=== PATIENT | female | born 1935 | race Caucasian/White ===

== ENCOUNTER 2017-09-12 09:59 | Day surgery (SDC) | payer MEDICARE, OTHER ==
[2017-09-11 12:01] LABS: BASOPHILS % (AUTO) 0.7 % (0-1); EOSINOPHILS # (AUTO) 0.3 X10'3 (0-0.9); HEMATOCRIT 31.7 % (35.0-45.0); HEMOGLOBIN 10.6 g/dl (12.0-16.0); LYMPHOCYTES # (AUTO) 1.7 X10'3 (1.1-4.8); LYMPHOCYTES % (AUTO) 25.7 % (21-51); MEAN CORPUSCULAR HGB CONC 33.5 % (33.0-36.5); MEAN CORPUSCULAR VOLUME 101.4 FL (78-98); MEAN PLATELET VOLUME 8.3 FL (7.4-10.4); MONOCYTES # (AUTO) 0.6 X10'3 (0-0.9); MONOCYTES % (AUTO) 9.2 % (2-12); NEUTROPHILS # (AUTO) 3.9 X10'3 (1.8-7.7); NEUTROPHILS % (AUTO) 60.4 % (42-75); PLATELET COUNT 173 X10'3 (140-440); RED BLOOD COUNT 3.12 X10'6 (4.20-5.60); RED CELL DISTRIBUTION WIDTH 14.1 % (11.5-14.5); WHITE BLOOD COUNT 6.5 X10'3 (4.5-11.0)
[2017-09-11 12:12] LABS: ALBUMIN 3.3 G/DL (3.4-5.0); ANION GAP 11 (8-16); BLOOD UREA NITROGEN 27 MG/DL (7-18); BUN/CREATININE RATIO 15.8 (6.6-38.0); CALCIUM 8.8 MG/DL (8.5-10.1); CHLORIDE 103 MMOL/L (99-107); CREATININE 1.71 MG/DL (0.40-0.90); GLUCOSE 107 MG/DL (70-104); POTASSIUM 4.2 MMOL/L (3.5-5.1); PROTHROMBIN TIME 10.1 SECONDS (9.0-12.0); SODIUM 138 MMOL/L (135-145); TOTAL CARBON DIOXIDE 24.1 MMOL/L (24-32); eGFR 29 ML/MIN
[~2017-09-12] VITALS: Ht 149.9 cm; Wt 91.8 kg
[2017-09-12] VITALS (16 sets, daily range): BP systolic 103–164; BP diastolic 35–70
[2017-09-12] MEDS ORDERED: LORazepam 0.5 MG tablet PO ONE ×2 (10:30→11:00)
[2017-09-12] MEDS ORDERED: diphenhydrAMINE 25mg capsule PO ONE ×2 (10:30→11:00)
[2017-09-12] MEDS ORDERED: normal saline 1000ml 1,000 ML IV SCH ×2 (10:30→11:00)
[2017-09-12] MEDS ORDERED: MIDAZolam 5mg/ml 2ml vial IV ONE (11:00)
[2017-09-12] MEDS ORDERED: morphine 10mg/ml inj. IV ONE (11:00)
[2017-09-12] MEDS ORDERED: amiodarone in dextrose, iso-osm 150mg/100ml bag IV ONE (11:00)
[2017-09-12] MEDS ORDERED: atropine 0.1mg/ml 10ml syringe IV ONE (11:00)
[2017-09-12] MEDS ORDERED: enoxaparin 100mg/ml syringe SUBCUT ONE (11:20)
[2017-09-12] MEDS ORDERED: LEVO50TA8 PO (11:37)
[2017-09-12] MEDS ORDERED: OXYB5TAB11 PO (11:51)
[2017-09-12] MEDS ORDERED: TAMO20TA4 PO (11:51)
[2017-09-12] MEDS ORDERED: SODI650T29 PO (11:51)
[2017-09-12] MEDS ORDERED: LORA1TAB PO (11:51)
[2017-09-12] MEDS ORDERED: CYAN-19 PO (11:51)
[2017-09-12] MEDS ORDERED: AMLO-94 PO (11:51)
[2017-09-12] MEDS ORDERED: HYDR-3972 PO (11:51)
[2017-09-12] MEDS ORDERED: FOLI0.4T2 PO (11:51)
[2017-09-12] MEDS ORDERED: FAMO20TA8 PO (11:55)
== END 2017-09-12 16:30 | disposition home or self-care (01) ==
LOC: SSTAY O 09:59
PROVIDERS: ATTEND Internal Medicine Cardiovascular Disease
DX: I48.1 Persistent atrial fibrillation (principal); E11.9 Type 2 diabetes mellitus without complications; I11.0 Hypertensive heart disease with heart failure; I50.9 Heart failure, unspecified; I07.1 Rheumatic tricuspid insufficiency; E78.5 Hyperlipidemia, unspecified; E03.9 Hypothyroidism, unspecified; J45.998 Other asthma; Z90.49 Acquired absence of other specified parts of digestive tract; Z96.643 Presence of artificial hip joint, bilateral; Z85.118 Personal history of other malignant neoplasm of bronchus and lung; Z85.42 Personal history of malignant neoplasm of other parts of uterus; Z79.891 Long term (current) use of opiate analgesic; Z87.891 Personal history of nicotine dependence; Z90.2 Acquired absence of lung [part of]; Z90.710 Acquired absence of both cervix and uterus; Z79.899 Other long term (current) drug therapy; Z98.890 Other specified postprocedural states
CPT/HCPCS: 36415; 80048; 85025; 85610; 93005; 93312; J0461; J1650; J2250; J2270; J7030; Q0163; A4620; J0282

== ENCOUNTER 2017-11-26 08:02 | Day surgery (SDC) | payer MEDICARE, OTHER ==
[2017-11-26] VITALS (10 sets, daily range): BP systolic 106–148; BP diastolic 52–68
[~2017-11-26] VITALS: Ht 149.9 cm; Wt 94.4 kg
[~2017-11-26 08:02] MED LIST: AMLO-94 PO; CYAN-19 PO; FAMO20TA8 PO; FOLI0.4T2 PO; HYDR-3972 PO; LEVO50TA8 PO; LORA1TAB PO; OXYB5TAB11 PO; SODI650T29 PO; TAMO20TA4 PO
[2017-11-26] MEDS ORDERED: ceFAZolin 1GM/D5W- ADD-VANTAGE 50 ML IV ONE ×2 (08:35→08:45)
[2017-11-26] MEDS ORDERED: normal saline 1000ml 1,000 ML IV SCH (08:35)
[2017-11-26] MEDS ORDERED: midazolam 2 mg/2 ml injection ONE ×3 (08:46→11:17)
[2017-11-26] MEDS ORDERED: ceFAZolin 1000mg inj ONE (08:46)
[2017-11-26] MEDS ORDERED: LIDOcaine 1% w/EPI 1:100,000 30ml vial (MDV) ONE ×2 (08:46→10:41)
[2017-11-26] MEDS ORDERED: fentaNYL/PF 50MCG/1 ML 2ML syringe ONE ×2 (08:46→10:30)
[2017-11-26] MEDS ORDERED: OMEP20CA10 PO (09:02)
[2017-11-26] MEDS ORDERED: LEVO75TA PO (09:02)
[2017-11-26] MEDS ORDERED: APIX2.5T PO (09:02)
[2017-11-26] MEDS ORDERED: LORA2TAB96 PO (09:02)
[2017-11-26] MEDS ORDERED: ALBU8HFA PO (09:02)
[2017-11-26] MEDS ORDERED: AMIO200T57 PO (09:02)
[2017-11-26] MEDS ORDERED: ADV50250 IH (09:06)
[2017-11-26] MEDS ORDERED: d3 (09:06)
[2017-11-26] MEDS ORDERED: POLY17PO10 PO (09:06)
[2017-11-26] MEDS ORDERED: B12 PO (09:06)
[2017-11-26 09:59] LABS: BASOPHILS % (AUTO) 0.2 % (0-1); EOSINOPHILS # (AUTO) 0.2 X10'3 (0-0.9); EOSINOPHILS % (AUTO) 2.2 % (0-6); HEMATOCRIT 29.5 % (35.0-45.0); HEMOGLOBIN 9.7 g/dl (12.0-16.0); LYMPHOCYTES # (AUTO) 1.5 X10'3 (1.1-4.8); LYMPHOCYTES % (AUTO) 17.9 % (21-51); MEAN CORPUSCULAR HEMOGLOBIN 32.7 PG (27.0-31.0); MEAN CORPUSCULAR VOLUME 99.1 FL (78-98); MONOCYTES # (AUTO) 0.8 X10'3 (0-0.9); MONOCYTES % (AUTO) 9.2 % (2-12); NEUTROPHILS # (AUTO) 6.1 X10'3 (1.8-7.7); NEUTROPHILS % (AUTO) 70.5 % (42-75); PLATELET COUNT 176 X10'3 (140-440); RED BLOOD COUNT 2.98 X10'6 (4.20-5.60); WHITE BLOOD COUNT 8.6 X10'3 (4.5-11.0)
[2017-11-26] MEDS ORDERED: iohexol 350 MG/ML 50ML vial IV ONE (10:07)
[2017-11-26 10:08] LABS: ALBUMIN 3.1 G/DL (3.4-5.0); ANION GAP 7 (8-16); BLOOD UREA NITROGEN 25 MG/DL (7-18); BUN/CREATININE RATIO 12.1 (6.6-38.0); CALCIUM 8.8 MG/DL (8.5-10.1); CHLORIDE 106 MMOL/L (99-107); CREATININE 2.06 MG/DL (0.40-0.90); GLUCOSE 106 MG/DL (70-104); POTASSIUM 4.4 MMOL/L (3.5-5.1); SODIUM 138 MMOL/L (135-145); eGFR 23 ML/MIN
[2017-11-26 10:10] LABS: INR 0.9 INR; PARTIAL THROMBOPLASTIN TIME 25 SECONDS (22-32); PROTHROMBIN TIME 9.8 SECONDS (9.0-12.0)
[2017-11-26] MEDS ORDERED: HYDROmorphone 1 mg/ml syringe ONE (10:36)
[2017-11-26] MEDS ORDERED: normal saline 500ml IV soln 400 ML IV ONE (12:15)
[2017-11-26] MEDS ORDERED: HYDROcodone/acetaminophen 5mg/325mg tablet PO PRN (12:15)
[2017-11-26] MEDS: HYDROcodone/acetaminophen 10/325mg tab PO PRN ×2 (12:22→16:38)
[2017-11-26] MEDS ORDERED: ceFAZolin 1GM/D5W- ADD-VANTAGE 50 ML IV SCH (16:00)
== END 2017-11-26 18:00 | disposition home or self-care (01) ==
LOC: SSTAY O 08:02
PROVIDERS: ATTEND Internal Medicine Cardiovascular Disease
DX: I49.5 Sick sinus syndrome (principal); E11.9 Type 2 diabetes mellitus without complications; E78.5 Hyperlipidemia, unspecified; I25.10 Atherosclerotic heart disease of native coronary artery without angina pectoris; I48.0 Paroxysmal atrial fibrillation; J45.998 Other asthma; I11.0 Hypertensive heart disease with heart failure; I50.9 Heart failure, unspecified; E03.9 Hypothyroidism, unspecified; I07.1 Rheumatic tricuspid insufficiency; Z79.891 Long term (current) use of opiate analgesic; Z87.891 Personal history of nicotine dependence; Z79.82 Long term (current) use of aspirin; Z79.01 Long term (current) use of anticoagulants; Z90.49 Acquired absence of other specified parts of digestive tract; Z96.643 Presence of artificial hip joint, bilateral; Z85.118 Personal history of other malignant neoplasm of bronchus and lung; Z90.2 Acquired absence of lung [part of]; Z85.41 Personal history of malignant neoplasm of cervix uteri; Z88.2 Allergy status to sulfonamides; Z88.8 Allergy status to other drugs, medicaments and biological substances; Z79.899 Other long term (current) drug therapy; Z98.890 Other specified postprocedural states
CPT/HCPCS: 33208; 36415; 71046; 80048; 85025; 85610; 85730; 93005; 99152; 99153; A4565; C1785; C1894; C1898; J0690; J1170; J2250; J3010; J3490; J7030; Q9967; A4620

== ENCOUNTER 2023-02-26 05:50 | Day surgery (SDC) | payer MEDICARE ==
[2023-02-23 12:44] LABS: BASOPHILS # (AUTO) 0.1 X10'3 (0-0.2); BASOPHILS % (AUTO) 0.7 % (0-1); EOSINOPHILS # (AUTO) 0.3 X10'3 (0-0.9); EOSINOPHILS % (AUTO) 4.8 % (0-6); HEMATOCRIT 33.1 % (35.0-45.0); HEMOGLOBIN 10.9 g/dl (12.0-16.0); LYMPHOCYTES # (AUTO) 1.4 X10'3 (1.1-4.8); LYMPHOCYTES % (AUTO) 19.1 % (21-51); MEAN CORPUSCULAR HEMOGLOBIN 35.5 PG (27.0-31.0); MEAN CORPUSCULAR VOLUME 107.4 FL (78-98); MEAN PLATELET VOLUME 8.6 FL (7.4-10.4); MONOCYTES # (AUTO) 0.9 X10'3 (0-0.9); MONOCYTES % (AUTO) 11.8 % (2-12); NEUTROPHILS # (AUTO) 4.6 X10'3 (1.8-7.7); NEUTROPHILS % (AUTO) 63.6 % (42-75); PLATELET COUNT 188 X10'3 (140-440); RED BLOOD COUNT 3.09 X10'6 (4.20-5.60); WHITE BLOOD COUNT 7.2 X10'3 (4.5-11.0)
[2023-02-23 12:55] LABS: ANION GAP 5 (8-16); BLOOD UREA NITROGEN 50 MG/DL (7-18); BUN/CREATININE RATIO 25.9 (10.0-20.0); CALCIUM 9.8 MG/DL (8.5-10.1); CHLORIDE 106 MMOL/L (99-107); CREATININE 1.93 MG/DL (0.40-0.90); GLUCOSE 110 MG/DL (70-104); POTASSIUM 4.2 MMOL/L (3.5-5.1); SODIUM 140 MMOL/L (135-145); TOTAL CARBON DIOXIDE 29.3 MMOL/L (24-32); eGFR 25 ML/MIN
[2023-02-23 12:58] LABS: APTT 31 SECONDS (22-32); INR 1.4 INR; PROTHROMBIN TIME 15.1 SECONDS (9.0-12.0)
[2023-02-26] VITALS (12 sets, daily range): BP systolic 120–169; BP diastolic 61–85; PULSE 70–74; RESP 13–16; TEMP 98.1; O2SAT 97–100
[~2023-02-26] VITALS: Ht 149.9 cm; Wt 101.2 kg
[~2023-02-26 05:50] MED LIST changes: +ADV50250 IH; +ALBU8HFA PO; +AMIO200T72 PO; -AMLO-94 PO; +APIX2.5T PO; +B12 PO; -CYAN-19 PO; -FOLI0.4T2 PO; +FOLI0.4T6 PO; -LEVO50TA8 PO; +LEVO75TA PO; -LORA1TAB PO; +LORA2TAB96 PO; +OMEP20CA15 PO; -OXYB5TAB11 PO; +OXYB5TAB16 PO; +POLY17PO10 PO; +d3
[2023-02-26] MEDS ORDERED: BUSP10TA4 PO (06:58)
[2023-02-26] MEDS ORDERED: ALLO100T PO (06:58)
[2023-02-26] MEDS ORDERED: WARF2.5T82 PO (06:58)
[2023-02-26] MEDS ORDERED: CARV6.2553 PO (06:58)
[2023-02-26] MEDS ORDERED: VIBE75TA PO (06:58)
[2023-02-26] MEDS ORDERED: ANAS1TAB10 PO (06:58)
[2023-02-26] MEDS ORDERED: DAPA10TA PO (06:58)
[2023-02-26] MEDS ORDERED: CALC0.2535 PO (06:58)
[2023-02-26] MEDS ORDERED: SODI650T29 PO (06:58)
[2023-02-26] MEDS ORDERED: LEVO100T9 PO (06:58)
[2023-02-26] MEDS ORDERED: KEN0.1O TP (06:59)
[2023-02-26] MEDS ORDERED: ASPI-1265 PO (07:00)
[2023-02-26] MEDS ORDERED: KRIL500C PO (07:01)
[2023-02-26] MEDS ORDERED: MULT-1133 PO (07:02)
[2023-02-26] MEDS ORDERED: FLUT1BLS3 INH (07:08)
[2023-02-26] MEDS ORDERED: DOCU-21 PO (07:08)
[2023-02-26] MEDS ORDERED: CRAN500C4 PO (07:11)
[2023-02-26] MEDS ORDERED: Prednisone PO (07:11)
[2023-02-26] MEDS ORDERED: verapamil 2.5 mg/ml inj IV ONE (07:24)
[2023-02-26] MEDS ORDERED: LIDOcaine 1% (10mg/ml) 2ml vial ONE (07:24)
[2023-02-26 07:25] LABS: INR 1.1 INR; PROTHROMBIN TIME 11.3 SECONDS (9.0-12.0)
[2023-02-26] MEDS ORDERED: heparin 1,000unit/ml 10ml vial 10 ML ONE (07:25)
[2023-02-26] MEDS ORDERED: iohexol 350MG/ML 100ml bottle IV ONE (07:25)
[2023-02-26] MEDS ORDERED: midazolam 1 mg/ML 2ml injection ONE (07:25)
[2023-02-26] MEDS ORDERED: nitroGLYCERIN 500mcg/5mL D5W 5 ML IV ONE (07:25)
[2023-02-26] MEDS ORDERED: fentaNYL/PF 50MCG/1 ML 2ML syringe ONE (07:27)
[2023-02-26] MEDS ORDERED: LORazepam 0.5 MG tablet PO PRN (07:30)
[2023-02-26] MEDS ORDERED: diphenhydrAMINE 25mg capsule PO PRN (07:30)
[2023-02-26] MEDS ORDERED: normal saline 1000ml 1,000 ML IV SCH ×2 (07:40→10:30)
[2023-02-26] MEDS ORDERED: sodium bicarbonate 1meq/ml syr 150 ML in dextrose 5%-water 1,000 ML IV SCH ×2 (07:45→10:30)
[2023-02-26] MEDS ORDERED: acetylcysteine 200 MG/ml 4ml vial PO SCH (08:00)
[2023-02-26] MEDS ORDERED: LIDOcaine 1% (10mg/ml)w/preservative inj. 20ml MDV ONE (09:06)
[2023-02-26 10:27] LABS: ISTAT HGB ART 10.9 g/dl (12.0-16.0); ISTAT Hct ART 32 %PCV (35-45); ISTAT O2 SATURATION ARTERIAL 99 % (95-98); ISTAT SOURCE ART
[2023-02-26] MEDS ORDERED: acetylcysteine 200 MG/ml 4ml vial INH ONE (10:30)
[2023-02-26] MEDS ORDERED: acetylcysteine 200 MG/ml 4ml vial PO ONE (10:35)
[2023-02-26 13:25] LABS: ISTAT HGB MIX 11.2 g/dl (12.0-16.0); ISTAT Hct MIX 33 %PCV (35-45); ISTAT O2 SATURATION MIX VENOUS 61 % (60-80); ISTAT SOURCE VEN
== END 2023-02-26 15:10 | disposition home or self-care (01) ==
LOC: SSTAY O 05:50
PROVIDERS: ATTEND Internal Medicine Cardiovascular Disease
DX: I25.119 Atherosclerotic heart disease of native coronary artery with unspecified angina pectoris (principal); E78.5 Hyperlipidemia, unspecified; I27.20 Pulmonary hypertension, unspecified; G47.33 Obstructive sleep apnea (adult) (pediatric); I07.1 Rheumatic tricuspid insufficiency; I48.0 Paroxysmal atrial fibrillation; I49.5 Sick sinus syndrome; E03.9 Hypothyroidism, unspecified; E11.22 Type 2 diabetes mellitus with diabetic chronic kidney disease; I13.0 Hypertensive heart and chronic kidney disease with heart failure and stage 1 through stage 4 chronic kidney disease, or unspecified chronic kidney disease; I50.9 Heart failure, unspecified; N18.9 Chronic kidney disease, unspecified; Z85.42 Personal history of malignant neoplasm of other parts of uterus; Z79.01 Long term (current) use of anticoagulants; Z79.82 Long term (current) use of aspirin; Z79.899 Other long term (current) drug therapy; Z90.2 Acquired absence of lung [part of]; Z98.890 Other specified postprocedural states; Z95.0 Presence of cardiac pacemaker; Z85.41 Personal history of malignant neoplasm of cervix uteri; Z87.01 Personal history of pneumonia (recurrent); Z96.643 Presence of artificial hip joint, bilateral; Z90.49 Acquired absence of other specified parts of digestive tract
CPT/HCPCS: 36415; 76937; 80048; 82803; 85014; 85025; 85610; 85730; 93005; 93460; 99152; 99153; J1644; J2250; J3010; J3490; J7030; J7070; Q0163; Q9967; 93456; A4615; A6258; A6449; C1725; C1751